=== PATIENT | male | born 1945 | race African-American/Black ===

== ENCOUNTER 2019-03-08 10:47 | Outpatient (CLI) | payer MEDICARE ==
[2019-03-08] MEDS ORDERED: LIDOCAINE (4%) 40 MG/ML TOPICAL SOLN 50 ML BOTTLE TP ONE (11:30)
== END 2019-03-08 10:48 | disposition home or self-care (01) ==
LOC: WOUND 10:47
PROVIDERS: ATTEND Surgery
DX: E11.621 Type 2 diabetes mellitus with foot ulcer (principal); L97.512 Non-pressure chronic ulcer of other part of right foot with fat layer exposed; I10 Essential (primary) hypertension; E66.9 Obesity, unspecified; E78.5 Hyperlipidemia, unspecified
CPT/HCPCS: 11042; G0463; 99205; 99215

== ENCOUNTER 2019-03-13 08:34 | Outpatient (CLI) | payer MEDICARE ==
--- NOTE | 2019-03-13 13:14 | Vascular Lab Report ---
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 TECHNIQUE: Arterial duplex examination of the right lower extremity performed using B-mode, color flow and spect ral Doppler assessment. FINDINGS: RIGHT: Common Femoral Artery: PSV 69 cm/sec. Triphasic waveform. Proximal SFA: PSV 78 cm/sec. Triphasic waveform. Mid SFA: PSV 73 cm/sec. Triphasic waveform. Distal SFA: PSV 51 cm/sec. Triphasic waveform. Popliteal artery: PSV 52 cm/sec. Triphasic waveform. Posterior tibial artery: PSV 80 cm/sec. Biphasic waveform. Anterior tibial artery: PSV 50 cm/sec. Biphasic waveform. Dorsalis Pedis Artery: PSV 48 cm/sec. Monophasic waveform. IMPRESSION: Right lower extremity arterial structures are patent with biphasic and monophasic flow distally as de scribed above. Doppler Waveform: * Triphasic is normal. * Biphasic is abnormal if clear transition from triphasic signal along vascular tree. * Monophasic is abnormal. Signer Name: Cornelius Salazar Jr, MD Signed: 03/13/2019 1:10 PM Workstation Name: [id number]
== END 2019-03-13 08:35 | disposition home or self-care (01) ==
LOC: VAS 08:34
PROVIDERS: ATTEND Surgery
DX: L97.512 Non-pressure chronic ulcer of other part of right foot with fat layer exposed (principal)

== ENCOUNTER 2019-03-15 10:55 | Outpatient (CLI) | payer MEDICARE ==
[2019-03-15] MEDS ORDERED: LIDOCAINE (4%) 40 MG/ML TOPICAL SOLN 50 ML BOTTLE TP ONE (11:08)
== END 2019-03-15 10:56 | disposition home or self-care (01) ==
LOC: WOUND 10:55
PROVIDERS: ATTEND Surgery
DX: E11.621 Type 2 diabetes mellitus with foot ulcer (principal); L97.512 Non-pressure chronic ulcer of other part of right foot with fat layer exposed; I10 Essential (primary) hypertension; E66.9 Obesity, unspecified; E78.5 Hyperlipidemia, unspecified; Z68.28 Body mass index [BMI] 28.0-28.9, adult

== ENCOUNTER 2019-03-29 13:52 | Outpatient (CLI) | payer MEDICARE ==
[2019-03-29] MEDS ORDERED: LIDOCAINE (4%) 40 MG/ML TOPICAL SOLN 50 ML BOTTLE TP ONE (13:54)
== END 2019-03-29 13:53 | disposition home or self-care (01) ==
LOC: WOUND 13:52
PROVIDERS: ATTEND Surgery
DX: E11.621 Type 2 diabetes mellitus with foot ulcer (principal); L97.512 Non-pressure chronic ulcer of other part of right foot with fat layer exposed; I10 Essential (primary) hypertension; E66.9 Obesity, unspecified; E78.5 Hyperlipidemia, unspecified; Z68.28 Body mass index [BMI] 28.0-28.9, adult
CPT/HCPCS: 99213; G0463